=== PATIENT | female | born 1980 | race Caucasian/White ===

== ENCOUNTER → 2023-11-15 08:59 | Outpatient (CLI) | payer MEDICARE, MEDICAID, SELFPAY ==
[2023-11-15 14:05] LABS: Clostridium Difficile Tox PCR Negative for C. diff (Negative)
== END ==
PROVIDERS: Referring Provider Physician Assistant Surgical; Visit Provider Physician Assistant Surgical
DX: R19.7 Diarrhea, unspecified (principal)
CPT/HCPCS: 87493